=== PATIENT | female | born 1960 | race Two or more races ===

== ENCOUNTER 2021-01-06 12:04 | Day surgery (SDC) | payer MEDICARE, OTHER ==
[~2021-01-06] VITALS: Ht 165.1 cm; Wt 81.6 kg
[2021-01-06] MEDS ORDERED: IOHEXOL-350 100 ML VIAL IV ONE (12:22)
[2021-01-06] MEDS ORDERED: METOPROLOL TARTRATE INJ 5 MG/5 ML AMPUL ONE (12:23)
[2021-01-06] MEDS ORDERED: CT SWABBABLE VALVE TRANS SET 1 EA INFUS.SET MC ONE (12:23)
[2021-01-06] MEDS ORDERED: IV NS 0.9% 250 ML IV ONE (12:23)
[2021-01-06] MEDS ORDERED: NITROGLYCERIN 0.4 MG/TAB BOTTLE ONE (12:23)
[2021-01-06] MEDS ORDERED: NITROGLYCERIN 0.4 MG/TAB BOTTLE SL ONE (12:30)
--- NOTE | 2021-01-06 12:30 | NUR ---
CTA: Patient verbalizes understanding regarding CTA, Patient signed consent.
[2021-01-06] MEDS: METOPROLOL TARTRATE INJ 5 MG/5 ML AMPUL IVP PRN ×2 (12:40→12:45)
[2021-01-06 12:55] VITALS: BP 139/82
--- NOTE | 2021-01-06 13:01 | NUR ---
POST CTA: Patient able to tolerate CTA, No distress noted. [facility].
== END 2021-01-06 23:59 | disposition home or self-care (01) ==
LOC: CT 12:04
PROVIDERS: ATTEND Internal Medicine
DX: I25.10 Atherosclerotic heart disease of native coronary artery without angina pectoris (principal); I21.4 Non-ST elevation (NSTEMI) myocardial infarction; M47.814 Spondylosis without myelopathy or radiculopathy, thoracic region
CPT/HCPCS: 75574; J3490; J7050; Q9967